=== PATIENT | male | born 1970 | race Caucasian/White ===

== ENCOUNTER 2022-03-28 07:54 | Emergency (ER) | payer OTHER ==
[2022-03-28] MEDS ORDERED: LIDOCAINE 1% 20 ML MDV ONE (08:19)
[2022-03-28] MEDS ORDERED: HYDROCODONE/APAP 7.5/325 MG TAB ONE (08:49)
--- NOTE | 2022-03-28 09:53 | ER ---
Nurse's Notes [facility] Name: Geoffrey Pollard Age: 51 yrs Sex: Male : 1970 Arrival Date: 03/28/2022 Time: 07:55 Bed 12 Private MD: Diagnosis: Laceration without foreign body of left little finger without damage to nail Presentation: 03/28 08:00 Chief complaint: Patient states: Smash injury to L 5th finger. Pt reports injury ss occurred approximately 45 minutes ago when he was launching a boat. Finger got smashed between two boats. Coronavirus screen: Client denies travel out of the [place] in the last 14 days. Ebola Screen: Patient denies exposure to infectious person. Patient denies travel to an Ebola-affected area in the 21 days before illness onset. Initial Sepsis Screen: Does the patient meet any 2 criteria? No. Patient's initial sepsis screen is negative. Does the patient have a suspected source of infection? No. Patient's initial sepsis screen is negative. Risk Assessment: Do you want to hurt yourself or someone else? Patient reports no desire to harm self or others. Onset of symptoms was March 28, 2022. 08:00 Method Of Arrival: Ambulatory ss 08:00 Acuity: ANAHI 3 ss Historical: - Allergies: 08:23 Unable to obtain; ss - Home Meds: 08:23 None [Active]; ss - Immunization history:: Last tetanus immunization: unknown. - Social history:: Smoking status: Patient denies any tobacco usage or history of. Screenin:17 Abuse screen: Denies threats or abuse. Denies injuries from another. Nutritional ss screening: No deficits noted. Tuberculosis screening: Never had TB. Fall Risk None identified. Assessment: 08:03 General: Appears in no apparent distress. Behavior is calm, cooperative. Pain: ss Complains of pain in palmar aspect of distal phalanx of left little finger and palmar aspect of middle phalanx of left little finger Pain currently is 6 out of 10 on a pain scale. Quality of pain is described as aching, tender, Is continuous. Neuro: Level of Consciousness is awake, alert, obeys commands, Oriented to person, place, time, situation. Cardiovascular: Capillary refill < 3 seconds is brisk in bilateral fingers. Respiratory: Airway is patent Respiratory effort is even, unlabored, Respiratory pattern is regular, symmetrical. Derm: Skin is intact, is healthy with good turgor, Skin is dry, Skin is pink, warm \T\ dry. normal. Musculoskeletal: Circulation, motion, and sensation intact. Range of motion: intact in all extremities, Swelling absent. Injury Description: Laceration sustained to palmar aspect of distal phalanx of left little finger and palmar aspect of middle phalanx of left little finger is 0.5 to 2.5 cm long, was sustained 30-60 minutes ago. a small amount of bleeding noted at this time. 10:17 Reassessment: Patient appears in no apparent distress at this time. Patient and/or ss family updated on plan of care and expected duration. Pain level reassessed. Pt is very pleased with care received. Vital Signs: 08:00 BP 142 / 100; Pulse 94; Resp 16; Temp 98.3(TE); Pulse Ox 98% on R/A; Weight 103.42 kg; ss Height 6 ft. 0 in. (182.88 cm); Pain 6/10; 08:00 Body Mass Index 30.92 (103.42 kg, 182.88 cm) ED Course: 07:55 Patient arrived in ED. mr 07:58 Soraya Davison FNP is [facility] 07:58 Leonila Lopez MD is Attending Physician. [facility] 08:02 Triage completed. ss 08:09 Savanna Bonilla, RN is Primary Nurse. ss 08:23 Arm band placed on right wrist. ss 09:24 XRAY Hand LEFT 3 View In Process Unspecified. EDMS 10:17 Patient has correct armband on for positive identification. Bed in low position. Call ss light in reach. 10:17 No provider procedures requiring assistance completed. Patient did not have IV access ss during this emergency room visit. 10:17 Assist provider with laceration repair on palmar aspect of middle phalanx of left ss little finger and palmar aspect of distal phalanx of left little finger that was 2.5 cm. or less using sutures. Set up tray. Performed by Soraya ASHFORD Dressed with Kerlix, non adherent dressing Patient tolerated well. Administered Medications: 08:43 Drug: [place] (HYDROcodone-acetaminophen) (7.5 mg-325 mg) 1 tabs Route: PO; ss 09:55 Follow up: Response: No adverse reaction; Pain is decreased ss 09:20 Drug: Lidocaine (1 %) 20 ml {Note: Administered by NP. Soraya} Volume: 20 ml; Route: ss Infiltration; 10:03 Drug: Tetanus-Diphtheria Toxoid Adult 0.5 ml {Nurse Orthopedic: Handseeing Information. Exp: ss 11/22/2023. Lot #: [id number]. } Route: IM; Site: left deltoid; 10:07 Follow up: Response: (VIS) Vaccine information sheet provided today. Questions and/or ss concerns addressed. VIS edition date: Apr 04, 2021. 10:18 Follow up: Response: No adverse reaction ss Medication: 10:17 Vaccine Information Statement (VIS) provided today. Questions and/or concerns ss addressed. VIS edition date: March 2022. Outcome: 09:53 Discharge ordered by MD. taylor 10:17 Discharged to home ambulatory. ss 10:17 Condition: good 10:17 Discharge instructions given to patient, Instructed on discharge instructions, follow up and referral plans. medication usage, Demonstrated understanding of instructions, follow-up care, medications, Prescriptions given X 2. 10:18 Patient left the ED. ss Signatures: Dispatcher [employer] JUSTINCT CanoAzalea Shelby, RN RN Soraya Machado, MAKEDA taylor
--- NOTE | 2022-03-28 09:53 | EDPHYS ---
Physician Documentation [facility] Name: Geoffrey Pollard Age: 51 yrs Sex: Male : 1970 Arrival Date: 03/28/2022 Time: 07:55 Bed 12 Private MD: ED Physician Leonila Lopez HPI: 03/28 08:13 This 51 yrs old Male presents to ER via Ambulatory with complaints of Finger Injury. [facility] 08:13 Trauma demographics: Location of Injury: The injury occurred at work, Date: March 28 [facility] 2021, Time: 07:30. Mechanism of injury: Crush injury: from Crushed between 2 boats. Onset: The symptoms/episode began/occurred this morning. Patient presents for a left fifth digit crush injury. Stated that he crushed his finger while at work between 2 boats. Complains of pain and a large laceration. No medical problems.. Historical: - Allergies: 08:23 Unable to obtain; ss - Home Meds: 08:23 None [Active]; ss - Immunization history:: Last tetanus immunization: unknown. - Social history:: Smoking status: Patient denies any tobacco usage or history of. ROS: 08:13 Constitutional: Negative for fever, chills, and weight loss, Eyes: Negative for injury, jh7 pain, redness, and discharge, ENT: Negative for injury, pain, and discharge, Cardiovascular: Negative for chest pain, palpitations, and edema, Respiratory: Negative for shortness of breath, cough, wheezing, and pleuritic chest pain, Abdomen/GI: Negative for abdominal pain, nausea, vomiting, diarrhea, and constipation, Back: Negative for injury and pain, Neuro: Negative for headache, weakness, numbness, tingling, and seizure. 08:13 MS/extremity: Positive for injury or acute deformity, laceration, pain, swelling, tenderness, Negative for decreased range of motion. 08:13 Skin: Positive for laceration(s). 08:13 All other systems are negative. Exam: 08:13 Constitutional: This is a well developed, well nourished patient who is awake, alert, jh7 and in no acute distress. Neck: Trachea midline, no thyromegaly or masses palpated, and no cervical lymphadenopathy. Supple, full range of motion without nuchal rigidity, or vertebral point tenderness. No Meningismus. Cardiovascular: Regular rate and rhythm with a normal S1 and S2. No gallops, murmurs, or rubs. Normal PMI, no JVD. No pulse deficits. Respiratory: Lungs have equal breath sounds bilaterally, clear to auscultation and percussion. No rales, rhonchi or wheezes noted. No increased work of breathing, no retractions or nasal flaring. Abdomen/GI: Soft, non-tender, with normal bowel sounds. No distension or tympany. No guarding or rebound. No evidence of tenderness throughout. Back: No spinal tenderness. No costovertebral tenderness. Full range of motion. Neuro: Awake and alert, GCS 15, oriented to person, place, time, and situation. Motor strength 5/5 in all extremities. Sensory grossly intact. Normal gait. 08:13 Musculoskeletal/extremity: ROM: intact in all extremities, Circulation is intact in all extremities. Sensation intact. 08:13 Skin: injury, laceration(s), the wound is approximately 3 cm(s), with a depth of 0.25 cm(s), of the left hand, that can be described as irregular, with moderate bleeding, Located on the palmar aspect of the fifth digit between the PIP and DIP joints. Vital Signs: 08:00 BP 142 / 100; Pulse 94; Resp 16; Temp 98.3(TE); Pulse Ox 98% on R/A; Weight 103.42 kg; ss Height 6 ft. 0 in. (182.88 cm); Pain 6/10; 08:00 Body Mass Index 30.92 (103.42 kg, 182.88 cm) Laceration: 10:00 Wound Repair of 3cm ( 1.2in ) subcutaneous laceration to left hand. Irregularly jh7 shaped.. Distal neuro/vascular/tendon intact. Anesthesia: Digital block administered with 4 mls of 1% lidocaine. Wound prep: Moderate cleansing with hibiclenz by me, Wound irrigation by mn. Skin closed with 11 5-0 Prolene using simple sutures and sterile technique. Dressed with pressure dressing. Patient tolerated well. MDM: 08:03 Patient medically screened. 7 10:00 Differential diagnosis: Laceration, open fracture. Data reviewed: vital signs, nurses [facility] notes, radiologic studies, plain films. Data interpreted: Pulse oximetry: is 98 %. Interpretation: normal. Counseling: I had a detailed discussion with the patient and/or guardian regarding: the historical points, exam findings, and any diagnostic results supporting the discharge/admit diagnosis, to return to the emergency department if symptoms worsen or persist or if there are any questions or concerns that arise at home. Special discussion: Needs to have sutures removed within 7 to 10 days. A finger splint was applied to use the first couple of days. Prescribed Keflex. Monitor for signs and symptoms of infection.. 03/28 08:08 Order name: XRAY Hand LEFT 3 View [facility] 03/28 08:08 Order name: Dressing - Wound; Complete Time: 09:43 7 03/28 08:08 Order name: Gloves, Sterile; Complete Time: :43 [facility] 03/28 08:08 Order name: Prolene, Sutures; Complete Time: :43 [facility] 03/28 08:08 Order name: Setup Suture Tray; Complete Time: :43 7 Administered Medications: 08:43 Drug: [place] (HYDROcodone-acetaminophen) (7.5 mg-325 mg) 1 tabs Route: PO; ss 09:55 Follow up: Response: No adverse reaction; Pain is decreased ss 09:20 Drug: Lidocaine (1 %) 20 ml {Note: Administered by GREGORY Lira.} Volume: 20 ml; Route: ss Infiltration; 10:03 Drug: Tetanus-Diphtheria Toxoid Adult 0.5 ml {Laborer Plumbing: [employer]. Exp: ss 11/22/2023. Lot #: [id number]. } Route: IM; Site: left deltoid; 10:07 Follow up: Response: (VIS) Vaccine information sheet provided today. Questions and/or ss concerns addressed. VIS edition date: Apr 04, 2021. 10:18 Follow up: Response: No adverse reaction ss Disposition: 15:31 Co-signature as Attending Physician, Leonila Lopez MD STAFF ATTESTATION STATEMENT I denise2 was immediately available on-site in the Emergency Department for consultation in the care of the patient. Leonila Lopez MD. Disposition Summary: 03/28/22 09:53 Discharge Ordered Location: Home [facility] Problem: new jh7 Symptoms: have improved jh Condition: Stable [facility] Diagnosis - Laceration without foreign body of left little finger without damage to nail jh7 Followup: jh7 - With: Private Physician - When: 7 - 10 days - Reason: Staple/Suture removal Discharge Instructions: - Discharge Summary Sheet [facility] Forms: - Medication Reconciliation Form [facility] - Thank You Letter [facility] - Antibiotic Education [facility] Prescriptions: - Cephalexin 500 mg Oral Capsule - take 1 capsule by ORAL route every 12 hours for 7 days; 14 capsule; Refills: 0, jh7 Product Selection Permitted - Naprosyn 500 mg Oral Tablet - take 1 tablet by ORAL route 2 times per day take with food; 30 tablet; Refills: [facility] 0, Product Selection Permitted Signatures: Dispatcher [employer] EDSavanna Romero RN RN ss Soraya Davison, CORPORATE FINANCIAL ANALYST CORPORATE FINANCIAL ANALYST 7 Leonila Lopez MD MD sd2
[2022-03-28] MEDS ORDERED: TETANUS & DIPHTHERIA TOX,ADULT 0.5 ML VIAL ONE (10:08)
--- NOTE | 2022-03-28 10:43 | RAD REPORT ---
EXAM DESCRIPTION: RAD -Hand Left 3 View - 03/28/2022 9:23 am CLINICAL HISTORY: Left hand pain status post injury FINDINGS: Bandage overlies the fifth digit obscuring detail somewhat. No fracture or dislocation is seen.
[2022-03-28 11:29] VITALS: BP 142/100; TEMP 98.3; O2SAT 98
== END 2022-03-28 10:18 | disposition home or self-care (01) ==
LOC: ER 07:54
PROC: 0JQK0ZZ Repair Left Hand Subcutaneous Tissue and Fascia, Open Approach (ICD-10-PCS; principal; 2022-03-28)
DX: S61.217A Laceration without foreign body of left little finger without damage to nail, initial encounter (principal); Z23 Encounter for immunization
CPT/HCPCS: 90471; 90714; 99284